=== PATIENT | female | born 1995 | race Caucasian/White ===

== ENCOUNTER 2017-08-02 18:04 | Emergency (ER) | payer MEDICAID ==
[~2017-08-02] VITALS: Ht 172.7 cm; Wt 100.0 kg
[2017-08-02] MEDS ORDERED: ondansetron/PF 4mg/2ml inj IV ONE (18:20)
[2017-08-02] MEDS ORDERED: etomidate 2mg/ml inj. IV ONE (18:20)
[2017-08-02] MEDS ORDERED: BUPIVAcaine 0.5% inj/PF 30 ml vial IJ ONE (18:20)
[2017-08-02] MEDS ORDERED: normal saline 1000ML IV soln IVB ONE (18:20)
[2017-08-02] MEDS ORDERED: fentaNYL/PF 50MCG/1 ML 2ML syringe IV ONE (18:20)
[2017-08-02] MEDS ORDERED: ONDA4TAB9 PO (19:14)
[2017-08-02] MEDS ORDERED: HYDR-3965 PO (19:14)
[2017-08-02 19:47] VITALS: BP 116/51
== END 2017-08-02 19:51 | disposition home or self-care (01) ==
LOC: ER 18:05
DX: S52.592A Other fractures of lower end of left radius, initial encounter for closed fracture (principal); S52.612A Displaced fracture of left ulna styloid process, initial encounter for closed fracture; Z90.49 Acquired absence of other specified parts of digestive tract; Z98.890 Other specified postprocedural states; W01.0XXA Fall on same level from slipping, tripping and stumbling without subsequent striking against object, initial encounter; Y93.89 Activity, other specified; Y92.89 Other specified places as the place of occurrence of the external cause; Y99.9 Unspecified external cause status
CPT/HCPCS: 25605; 73100; 94760; 96361; 96374; 99152; 99285; A4565; A6449; J2405; J3010; J3490; J7030; 96375; A4620

== ENCOUNTER 2017-08-07 13:04 | Outpatient (CLI) | payer MEDICAID ==
[~2017-08-07 13:04] MED LIST: HYDR-3965 PO; ONDA4TAB9 PO
[2017-08-07 13:14] VITALS: BP 122/69
== END 2017-08-07 14:15 | disposition home or self-care (01) ==
LOC: ORTHO 13:04
PROVIDERS: ATTEND Nurse Practitioner Family
DX: Z01.818 Encounter for other preprocedural examination (principal); S52.502A Unspecified fracture of the lower end of left radius, initial encounter for closed fracture; S52.612A Displaced fracture of left ulna styloid process, initial encounter for closed fracture; F12.90 Cannabis use, unspecified, uncomplicated; Z87.11 Personal history of peptic ulcer disease; Z90.49 Acquired absence of other specified parts of digestive tract; Z98.890 Other specified postprocedural states; Z79.899 Other long term (current) drug therapy; X58.XXXA Exposure to other specified factors, initial encounter; Y93.89 Activity, other specified; Y92.89 Other specified places as the place of occurrence of the external cause; Y99.8 Other external cause status
CPT/HCPCS: 99211

== ENCOUNTER 2017-08-15 14:21 | Outpatient (CLI) | payer MEDICAID ==
[~2017-08-15] VITALS: Ht 172.7 cm; Wt 99.8 kg
[2017-08-15] MEDS ORDERED: CHOL10002 PO (15:12)
[2017-08-15 15:24] LABS: BASOPHILS % (AUTO) 0.2 % (0-1); EOSINOPHILS # (AUTO) 0.2 X10'3 (0-0.9); EOSINOPHILS % (AUTO) 1.9 % (0-6); LYMPHOCYTES # (AUTO) 3.6 X10'3 (1.1-4.8); LYMPHOCYTES % (AUTO) 28.4 % (21-51); MEAN CORPUSCULAR HEMOGLOBIN 26.8 PG (27.0-31.0); MEAN CORPUSCULAR VOLUME 81.4 FL (78-98); MEAN PLATELET VOLUME 8.1 FL (7.4-10.4); MONOCYTES # (AUTO) 0.7 X10'3 (0-0.9); MONOCYTES % (AUTO) 5.7 % (2-12); NEUTROPHILS % (AUTO) 63.8 % (42-75); PRE OP HEMATOCRIT 40.6 % (35.0-45.0); PRE OP HEMOGLOBIN 13.4 g/dL (12.0-16.0); PRE OP PLATELET COUNT 303 X10'3 (140-440); RED BLOOD COUNT 4.99 X10'6 (4.20-5.60)
[2017-08-15 15:39] LABS: ALBUMIN 3.8 G/DL (3.4-5.0); ALBUMIN/GLOBULIN RATIO 0.7 (1.1-1.5); ALKALINE PHOSPHATASE 120 IU/L (46-116); BLOOD UREA NITROGEN 10 MG/DL (7-18); BUN/CREATININE RATIO 14.5 (6.6-38.0); CALCIUM 9.5 MG/DL (8.5-10.1); CHLORIDE 102 MMOL/L (99-107); CREATININE 0.69 MG/DL (0.40-0.90); PRE OP ALT 34 U/L (30-65); PRE OP ANION GAP 9 (8-16); PRE OP AST 19 U/L (10-37); PRE OP BILIRUB, TOTAL 0.2 MG/DL (0.0-1.0); PRE OP GLUCOSE 86 MG/DL (70-104); PRE OP POTASSIUM 3.7 MMOL/L (3.4-5.1); PRE OP SODIUM 138 MMOL/L (135-145); TOTAL CARBON DIOXIDE 26.6 MMOL/L (24-32); TOTAL PROTEIN 9.3 G/DL (6.4-8.2); eGFR > 90 ML/MIN
[2017-08-15 17:47] LABS: HCG SERUM QL NEGATIVE
[2017-08-19] MEDS ORDERED: ringers solution, lacted 1,000 ML IV SCH (05:00)
[2017-08-19] MEDS ORDERED: famotidine 20mg tablet PO ONE (05:30)
[2017-08-19] MEDS ORDERED: albuterol 2.5 MG/3 ML nebule NEB ONE (05:30)
[2017-08-19] MEDS ORDERED: vancomycin inj 1,500 MG in normal saline 300ml IV soln IV ONE (05:30)
[2017-08-19] MEDS ORDERED: ceFAZolin 2gm in dextrose, iso 100 ML IV ONE (05:30)
== END 2017-08-15 23:59 | disposition home or self-care (01) ==
LOC: PRE-OP 14:21 → EDSTATUS 08-19 09:00
PROVIDERS: ATTEND Orthopaedic Surgery
DX: S52.502A Unspecified fracture of the lower end of left radius, initial encounter for closed fracture (principal); S52.612A Displaced fracture of left ulna styloid process, initial encounter for closed fracture; F12.90 Cannabis use, unspecified, uncomplicated; F41.9 Anxiety disorder, unspecified; F32.9 Major depressive disorder, single episode, unspecified; Z90.49 Acquired absence of other specified parts of digestive tract; Z79.899 Other long term (current) drug therapy; Z87.891 Personal history of nicotine dependence; X58.XXXA Exposure to other specified factors, initial encounter; Y93.89 Activity, other specified; Y92.89 Other specified places as the place of occurrence of the external cause; Y99.8 Other external cause status
CPT/HCPCS: 36415; 80053; 84703; 85025

== ENCOUNTER 2017-08-20 10:20 | Outpatient (CLI) | payer MEDICAID ==
[~2017-08-20 10:20] MED LIST changes: +CHOL10002 PO; -HYDR-3965 PO; -ONDA4TAB9 PO
[2017-08-20 10:27] VITALS: BP 113/68
== END 2017-08-20 11:40 | disposition home or self-care (01) ==
LOC: ORTHO 10:20
PROVIDERS: ATTEND Nurse Practitioner Family
DX: Z01.818 Encounter for other preprocedural examination (principal); S52.502D Unspecified fracture of the lower end of left radius, subsequent encounter for closed fracture with routine healing; S52.615D Nondisplaced fracture of left ulna styloid process, subsequent encounter for closed fracture with routine healing; F12.90 Cannabis use, unspecified, uncomplicated; X58.XXXD Exposure to other specified factors, subsequent encounter
CPT/HCPCS: 29075; 73110; A4590